=== PATIENT | male | born 1985 | race Caucasian/White ===

== ENCOUNTER 2016-10-29 21:24 | Emergency (ER) | payer OTHER ==
[~2016-10-29] VITALS: Ht 185.4 cm; Wt 129.6 kg
[2016-10-29 21:36] VITALS: BP 146/92
[2016-10-29] MEDS ORDERED: HYDROCODONE/ACETAMINOPHEN 5-325 MG TABLET PO ONE (21:45)
== END 2016-10-29 21:55 | disposition home or self-care (01) ==
LOC: EEVIPCON 21:27 → EMS 21:27
DX: K02.9 Dental caries, unspecified (principal); Z76.0 Encounter for issue of repeat prescription
CPT/HCPCS: 99283